=== PATIENT | female | born 2000 | race Caucasian/White ===

== ENCOUNTER 2023-02-08 10:52 | Emergency (ER) | payer OTHER, SELFPAY ==
[2023-02-08 10:59] VITALS: BP 104/64; PULSE 89; RESP 16; TEMP 36.8; O2SAT 97
--- NOTE | 2023-02-08 11:09 | ED.URI ---
HPI - URI/Sore Throat General Chief Complaint: Upper Respiratory Infection Stated Complaint: sore throat Time Seen by Provider: 02/08/23 11:00 Source: patient Mode of arrival: ambulatory Limitations: no limitations History of Present Illness HPI Narrative: Breanne is a 22-year-old female patient presenting to the clinic today with complaints of sore throat x4 days. She denies any fever, URI symptoms, nausea, vomiting, or diarrhea. No known exposure to anyone with COVID, flu, or strep. MD elicited complaint: sore throat Related Data Home Medications Medication Instructions Recorded Confirmed No Home Medications 02/08/23 02/08/23 Allergies Allergy/AdvReac Type Severity Reaction Status Date / Time minocycline Allergy Unknown Verified 02/08/23 11:06 Review of Systems Review of Systems: Pertinent positives per HPI. Patient denies any fever, chills, rash, headache, visual changes, dizziness, cough, shortness of breath, chest pain, palpitations, nausea, vomiting, diarrhea, constipation, abdominal pain, or any urinary issues. PMFSH Comments At the time of my signature, I reviewed and agree with the nursing past medical, surgical, social, and family history. There is no relevant family history pertinent to the patient complaint. Exam Narrative: General: Well-developed, well nourished, in no apparent distress Head: Normocephalic, atraumatic Eyes: Pupils equally round and reactive to light bilaterally, EOM intact, sclera and conjunctive clear, no discharge, lids normal Ears: TMs intact and clear, ear canals clear, no drainage, grossly hearing normal. Nose: Nares patent, no discharge, no inflammation, no sinus tenderness. Mouth: Oral pharynx red with bilateral tonsillar enlargement and white exudate without masses, good dentition, MMM. Neck: Supple, trachea midline, mild enlargement of anterior cervical nodes, no thyroid masses or goiter palpable. Cardio: Regular rate and rhythm, s1 and s2 normal, no murmur appreciated. Resp: Clear to auscultation bilaterally, no rhonchi, rales, wheezing or rubs Course Course Emergency Course: Portions of this record may have been created with voice recognition software. Level of Care: Express Care Visit Vital Signs Vital signs: Vital Signs Temperature 36.8 C 02/08/23 10:59 Pulse Rate 89 02/08/23 10:59 Respiratory Rate 16 02/08/23 10:59 Blood Pressure 104/64 02/08/23 10:59 Pulse Oximetry 97 02/08/23 10:59 Oxygen Delivery Room Air 02/08/23 10:59 Temperature 36.8 C 02/08/23 10:59 Pulse Rate 89 02/08/23 10:59 Respiratory Rate 16 02/08/23 10:59 Blood Pressure 104/64 02/08/23 10:59 Pulse Oximetry 97 02/08/23 10:59 Oxygen Delivery Room Air 02/08/23 10:59 Vital signs reviewed MDM - URI/Sore Throat MDM Narrative Medical decision making narrative: At the time of visit patient is resting comfortably on the exam table. Strep screen was obtained and was negative in the clinic today. We will send strep for culture. Patient is nontoxic appearing. Supportive measures were discussed with the patient and she voiced understanding of the discharge instructions and agrees to treatment plan. Return precautions were reviewed Differential Diagnosis Differential diagnosis: Likely upper respiratory infection, otitis media, sinusitis, viral infection, bronchitis, influenza, pharyngitis and other (COVID) Discharge Plan Discharge Clinical Impression: Pharyngitis Patient Disposition: Home, Self-Care Condition: Stable Instructions: Antibiotic Form, Pharyngitis (ED) Additional Instructions: Strep screen was negative in the clinic today. We will send for culture if this comes back positive we will contact him place you on antibiotics at that time Increase fluids and stay well hydrated Tylenol/motrin for pain/fever Flonase and OTC antihistamines as directed Vicks vapor rub to open sinuses Sinus rinses for congestion
== END 2023-02-08 11:23 | disposition home or self-care (01) ==
PROVIDERS: Emergency Provider Nurse Practitioner Family
DX: J02.9 Acute pharyngitis, unspecified (principal)
CPT/HCPCS: 87081; 87880; 99213; G0463